=== PATIENT | male | born 1995 | race African-American/Black ===

== ENCOUNTER 2018-02-24 14:14 | Emergency (ER) | payer OTHER ==
[2018-02-24] MEDS ORDERED: NORCO, ANEXSIA 5/325MG TABLET (HYDROcodone/ACETAMINOPHEN) PO (17:30)
[2018-02-24] MEDS: NORCO, ANEXSIA 5/325MG TABLET (HYDROcodone/ACETAMINOPHEN) PO (17:35)
[2018-02-26 14:19] LABS: ANTINUCLEAR ANTIBODIES DIRECT Negative (Negative)
[2018-02-26 15:19] LABS: IgG P18 AB Absent (.); IgG P23 AB Absent (.); IgG P28 AB Absent (.); IgG P30 AB Absent (.); IgG P39 AB Absent (.); IgG P41 AB Present (.); IgG P45 AB Absent (.); IgG P58 AB Absent (.); IgG P66 AB Present (.); IgG P93 AB Absent (.); IgM P23 AB Absent (.); IgM P39 AB Absent (.); IgM P41 AB Absent (.); LYME IgG WB INTERPRETATION Negative (.); LYME IgM WB INTERPRETATION Negative (.)
== END 2018-02-24 17:39 | disposition home or self-care (01) ==
LOC: M ED 14:14
DX: M25.561 Pain in right knee (principal); M25.562 Pain in left knee
CPT/HCPCS: 86038

== ENCOUNTER → 2018-05-16 | Outpatient (REF) | payer OTHER ==
[2018-05-16 11:12] LABS: SEMEN APPEARANCE OPAQUE (OPAQUE); SEMEN VISCOSITY LIQUID (LIQUID); SEMEN VOLUME 1.2 ml (4.0-5.0)
[2018-05-16 11:13] LABS: % NORMAL FORMS 6 % (>=4); IMMOTILITY 52 %; NON PROGRESSIVE MOTILITY (c) 16 %; PROGRESSIVE MOTILITY (a) 32 % (>=32); SPERM CONCENTRATION 31.3 M/ml (>=15.0); SPERM# 37.5 M/Ejac (>=39); TOTAL FUNCTIONAL 1.8 M/Ejac.; TOTAL MOTILITY 48 % (>=40); TOTAL PROGRESSIVE SPERM 12.1 M/Ejac.; WBC CONCENTRATION <=1 M/ml (<=1 M/ml)
== END ==
LOC: M LAB REF 10:28
DX: N46.8 Other male infertility (principal)